=== PATIENT | female | born 1990 | race African-American/Black ===

== ENCOUNTER 2019-11-15 10:44 | Inpatient (IN) ==
[2019-11-15] MEDS ORDERED: ONDANSETRON 4 MG/2 ML VIAL IV PRN (10:54)
[2019-11-15] MEDS ORDERED: MEPERIDINE 50 MG/1 ML VIAL IV PRN (10:54)
[2019-11-15] MEDS ORDERED: BUTORPHANOL 2 MG/ML VIAL IV PRN (10:54)
[2019-11-15] MEDS ORDERED: NALOXONE 0.4 MG/ML VIAL IV PRN (10:56)
[2019-11-15] MEDS ORDERED: PROMETHAZINE 25 MG/1 ML VIAL IM PRN (10:56)
[2019-11-15] MEDS ORDERED: FAMOTIDINE 20 MG/2 ML VIAL IV ONE (10:56)
[2019-11-15] MEDS ORDERED: hydrOXYzine HCL 25 MG/1 ML VIAL IM PRN (10:56)
[2019-11-15] MEDS ORDERED: diphenhydrAMINE 50 MG/1 ML VIAL IV PRN (10:56)
[2019-11-15] MEDS ORDERED: ePHEDrine 50 MG/ML AMP IV PRN (10:56)
[2019-11-15] MEDS ORDERED: CITRIC ACID/SODIUM CITRATE 30 ML UDCUP PO ONE (10:56)
[2019-11-15] MEDS ORDERED: OXYTOCIN/LR 20 UNIT/1,000 ML BAG IV SCH (11:00)
[2019-11-15] MEDS ORDERED: fentaNYL 2 MCG/ROPIV 0.2% EPID 100 ML EPIDURAL SCH (11:00)
[2019-11-15 11:16] LABS: Basophils % 0.4 % (0.0-0.8); Eosinophils # 0.1 10*3/uL (0.0-0.87); Eosinophils % 2.1 % (0.00-10.9); Hematocrit 30.6 VOL% (35.7-47.0); Hemoglobin 9.3 GM/DL (12.0-16.0); Immature Granulocytes % 0.4 %; Immature Granulocytes Absolute 0.03 #; Lymphocytes % 14.8 % (21.3-54.2); Mean Corpuscular HGB Conc 30.4 GM/DL (32-36); Mean Corpuscular Volume 85.5 FL (87-102); Mean Platelet Volume 10.6 FL (9.6-12.0); Monocytes % 10.9 % (1.7-12.7); Neutrophils % 71.4 % (38.7-73.9); Platelet Count 237 T/CUMM (130-400); Red Blood Count 3.58 MC/CUMM (3.8-5.5); Red Cell Distribution Width 14.8 % (9.3-17.3); White Blood Count 6.7 T/CUMM (4-12)
[2019-11-15] MEDS ORDERED: AMPICILLIN INJ 2,000 MG in SODIUM CHLORIDE 0.9% 100 ML IV ONE (11:22)
[2019-11-15] MEDS ORDERED: CARBOPROST TROMETHAMINE 250 MCG/ML AMP IM ONE (11:24)
[2019-11-15] MEDS ORDERED: LIDOCAINE 1% 50 ML VIAL ONE (11:24)
[2019-11-15] MEDS ORDERED: miSOPROStoL 200 MCG TABLET ONE (11:24)
[2019-11-15] MEDS ORDERED: METHYLERGONOVINE 0.2 MG/1 ML AMP ONE (11:24)
[2019-11-15] MEDS ORDERED: TRANEXAMIC ACID 1,000 MG/10 ML VIAL ONE ×2 (11:29→18:01)
[2019-11-15 11:34] LABS: Albumin 2.4 G/DL (3.4-5.0); Bilirubin,Total 0.4 MG/DL (0.2-1.0); Calcium 8.6 MG/DL (8.5-10.1)
[2019-11-15] MEDS: LACTATED RINGERS 1,000 ML IV SCH ×2 (11:36→12:30)
[2019-11-15 14:59] LABS: Apearance,Urine CLEAR (Clear); Bilirubin,Urine Negative (Negative); Blood, Urine Negative (Negative); Glucose,Urine (UA) Negative (Negative); Ketones,Urine 20 mg/dL (Negative); Mucus,Urine Occasional /LPF (Occasional); Nitrite,Urine Negative (Negative); Protein,Urine Negative; RBC,Urine 1 /HPF (0-4); Squamous Epithelial Cell,Urine Occasional /HPF (0-10); Urine Color Yellow (Yellow); Urine Specific Gravity 1.012 (1.001-1.035); Urine Urobilinogen < 2.0 EU/DL (0.2-1.0); WBC,Urine <1 /HPF (0-6)
[2019-11-15] MEDS ORDERED: AMPICILLIN INJ 1,000 MG in SODIUM CHLORIDE 0.9% 100 ML IV SCH (15:30)
[2019-11-15] MEDS ORDERED: IBUPROFEN 800 MG TABLET PO PRN (19:45)
[2019-11-16 06:21] LABS: Basophils % 0.4 % (0.0-0.8); Eosinophils # 0.1 10*3/uL (0.0-0.87); Eosinophils % 1.9 % (0.00-10.9); Hematocrit 26.5 VOL% (35.7-47.0); Hemoglobin 8.1 GM/DL (12.0-16.0); Immature Granulocytes % 0.4 %; Immature Granulocytes Absolute 0.03 #; Lymphocytes % 13.4 % (21.3-54.2); Mean Corpuscular HGB Conc 30.6 GM/DL (32-36); Mean Corpuscular Volume 85.8 FL (87-102); Mean Platelet Volume 10.6 FL (9.6-12.0); Monocytes % 11.9 % (1.7-12.7); Platelet Count 212 T/CUMM (130-400); Red Blood Count 3.09 MC/CUMM (3.8-5.5); Red Cell Distribution Width 14.8 % (9.3-17.3); White Blood Count 7.4 T/CUMM (4-12)
[2019-11-16] MEDS: DOCUSATE SODIUM 100 MG CAPSULE PO SCH ×2 (08:49→20:35)
[2019-11-17 07:42] LABS: Calcium 8.3 MG/DL (8.5-10.1); Osmolality,Calculated 271.7 MOS/KG (273-304)
[2019-11-17] MEDS: DOCUSATE SODIUM 100 MG CAPSULE PO SCH (09:30)
[2019-11-17 10:22] VITALS: BP 103/65
== END 2019-11-17 10:30 | disposition home or self-care (01) | DRG 807 ==
LOC: N.LDOUT 10:44 → N.LD 10:46 → N.OB 21:10
PROVIDERS: ADMIT Obstetrics & Gynecology; ATTEND Obstetrics & Gynecology